=== PATIENT | female | born 1970 | race African-American/Black ===

== ENCOUNTER 2022-11-27 13:01 | Inpatient (IN) | payer OTHER ==
[~2022-11-27] VITALS: Ht 170.2 cm; Wt 99.6 kg
[2022-11-27 13:08] VITALS: BP_SYST 131
[2022-11-27] MEDS ORDERED: predniSONE 20 MG TABLET PO ONE (13:30)
[2022-11-27] MEDS ORDERED: IPRATROPIUM/ALBUTEROL SULFATE 3 ML AMPUL.NEB (DUONEB) INH ONE ×3 (13:30)
[2022-11-27] MEDS ORDERED: cefTRIAXone 1 GM in D5W 50 ML IV ONE (13:45)
[2022-11-27] MEDS ORDERED: AZITHROMYCIN 500 MG in NS 250 ML IV ONE (13:45)
[2022-11-27 14:02] LABS: HEMATOCRIT 35.6 % (36-48); MEAN CORPUSCULAR HEMOGLOBIN 25 pg (27-31); MEAN CORPUSCULAR HGB CONC 34 % (32-36); MEAN CORPUSCULAR VOLUME 74 fL (79.0-98.0); PLATELET COUNT (AUTO) 183 K/uL (130-430); RED BLOOD CELL COUNT(AUTO) 4.83 MIL/uL (4.2-6.2); RED CELL DISTRIBUTION WIDTH 16.7 % (9.0-15.0); WHITE BLOOD COUNT (AUTO) 6.2 K/uL (4.8-10.8)
[2022-11-27 14:03] LABS: BASOPHILS % (AUTO) 0.3 % (0.0-2.0); EOSINOPHILS % (AUTO) 0.2 % (0.0-4.0); LYMPHOCYTES # (AUTO) 0.6 K/uL (1.0-5.5); LYMPHOCYTES % (AUTO) 9.5 % (20.5-51.5); MONOCYTES # (AUTO) 0.4 K/uL (0.0-1.0); MONOCYTES % (AUTO) 6.2 % (1.7-9.3); NEUTROPHILS # (AUTO) 5.2 K/uL (1.8-7.7); NEUTROPHILS % (AUTO) 83.8 % (40.0-70.0)
[2022-11-27 14:06] LABS: ANION GAP 9 (5-15); CALCIUM 9.4 mg/dL (8.4-11.0); CHLORIDE 100 mmol/L (98-107); CREATININE 0.65 mg/dL (0.55-1.30); GLUCOSE 100 mg/dL (70-99); UREA NITROGEN, BLOOD 11 mg/dL (8-21)
[2022-11-27 14:13] LABS: ALANINE AMINOTRANSFERASE 14 U/L (12-78); ASPARTATE AMINOTRANSFERASE 13 U/L (10-37); TOTAL BILIRUBIN 0.4 mg/dL (0.0-1.0)
[2022-11-27 14:17] LABS: GFR AFRICAN AMERICAN 123 mL/min (>90)
[2022-11-27] MEDS ORDERED: cefTRIAXone 1 GM VIAL ONE (15:09)
[2022-11-27] MEDS ORDERED: AZITHROMYCIN 500 MG/VIAL (ZITHROMAX) IV ONE (15:10)
[2022-11-27] MEDS ORDERED: hydrALAZINE HCL 20 MG/ML VIAL IVP ONE (15:30)
[2022-11-27] MEDS ORDERED: NITROGLYCERIN 1 INCH (GM) OINT. TP ONE (15:30)
[2022-11-27] MEDS ORDERED: MORPHINE 4 MG INJ. 4 MG/ML VIAL IVP ONE (15:30)
[2022-11-27] MEDS ORDERED: ASPIRIN 325 MG TABLET PO ONE (15:30)
[2022-11-27 20:37] VITALS: BP_SYST 142
[2022-11-28] MEDS ORDERED: hydrALAZINE HCL 20 MG/ML VIAL IVP PRN (01:45)
[2022-11-28] MEDS ORDERED: NITROGLYCERIN 0.4 MG TAB.SUBL SL PRN (01:45)
[2022-11-28] MEDS: LISINOPRIL 10 MG TABLET (PRINIVIL) PO SCH (09:01)
[2022-11-28 09:02] VITALS: BP_SYST 155
[2022-11-28] MEDS: IPRATROPIUM/ALBUTEROL SULFATE 3 ML AMPUL.NEB (DUONEB) INH SCH ×4 (11:53→23:22)
[2022-11-28 12:30] VITALS: BP_SYST 151
[2022-11-28] MEDS: cefTRIAXone 1 GM in D5W 50 ML IV SCH (15:13)
[2022-11-28] MEDS: AZITHROMYCIN 500 MG in NS 250 ML IV SCH (15:14)
[2022-11-28] MEDS ORDERED: BUDESONIDE 0.5 MG/2 ML AMPUL.NEB INH ONE (15:15)
[2022-11-28] MEDS ORDERED: methylPREDNISolone SOD SUCC/PF 62.5 MG/ML VIAL IVP ONE (15:15)
[2022-11-28 16:30] VITALS: BP_SYST 138
[2022-11-28 16:42] LABS: C-REACTIVE PROTEIN QUANT 3.1 mg/dL (0-0.5)
[2022-11-28 19:00] VITALS: BP_SYST 152
[2022-11-28 20:00] VITALS: BP_SYST 152
[2022-11-28] MEDS: BUDESONIDE 0.5 MG/2 ML AMPUL.NEB INH SCH (20:16)
[2022-11-28] MEDS: methylPREDNISolone SOD SUCC/PF 62.5 MG/ML VIAL IVP SCH (20:17)
[2022-11-29] VITALS: BP_SYST 150
[2022-11-29 02:43] LABS: BASOPHILS % (AUTO) 0.3 % (0.0-2.0); HEMATOCRIT 34.2 % (36-48); HEMOGLOBIN 11.3 g/dL (12.0-16.0); LYMPHOCYTES # (AUTO) 0.2 K/uL (1.0-5.5); LYMPHOCYTES % (AUTO) 2.8 % (20.5-51.5); MEAN CORPUSCULAR HEMOGLOBIN 24 pg (27-31); MEAN CORPUSCULAR HGB CONC 33 % (32-36); MEAN CORPUSCULAR VOLUME 74 fL (79.0-98.0); MONOCYTES % (AUTO) 0.5 % (1.7-9.3); NEUTROPHILS # (AUTO) 7.7 K/uL (1.8-7.7); NEUTROPHILS % (AUTO) 96.4 % (40.0-70.0); PLATELET COUNT (AUTO) 232 K/uL (130-430); RED BLOOD CELL COUNT(AUTO) 4.64 MIL/uL (4.2-6.2); RED CELL DISTRIBUTION WIDTH 16.8 % (9.0-15.0); WHITE BLOOD COUNT (AUTO) 7.9 K/uL (4.8-10.8)
[2022-11-29 03:08] LABS: CALCIUM 8.9 mg/dL (8.4-11.0); CREATININE 0.79 mg/dL (0.55-1.30)
[2022-11-29] MEDS: IPRATROPIUM/ALBUTEROL SULFATE 3 ML AMPUL.NEB (DUONEB) INH SCH ×5 (03:15→19:55)
[2022-11-29 03:28] LABS: ALBUMIN 2.7 g/dL (3.4-4.8); THYROID STIMULATING HORMONE 0.52 uIu/mL (0.34-4.82); TOTAL BILIRUBIN 0.2 mg/dL (0.0-1.0)
[2022-11-29] MEDS: BUDESONIDE 0.5 MG/2 ML AMPUL.NEB INH SCH ×2 (08:14→19:55)
[2022-11-29 08:20] VITALS: BP_SYST 159
[2022-11-29] MEDS: LISINOPRIL 10 MG TABLET (PRINIVIL) PO SCH (09:07)
[2022-11-29] MEDS: methylPREDNISolone SOD SUCC/PF 62.5 MG/ML VIAL IVP SCH ×2 (09:08→21:21)
[2022-11-29] MEDS ORDERED: NIFEdipine 30 MG TAB.ER.24 PO ONE (12:15)
[2022-11-29 12:30] VITALS: BP_SYST 164
[2022-11-29] MEDS: cefTRIAXone 1 GM in D5W 50 ML IV SCH (15:15)
[2022-11-29 16:15] VITALS: BP_SYST 165
[2022-11-29] MEDS: AZITHROMYCIN 500 MG in NS 250 ML IV SCH (17:09)
[2022-11-29 19:00] VITALS: BP_SYST 138
[2022-11-29 20:00] VITALS: BP_SYST 138
[2022-11-30] VITALS: BP_SYST 136
[2022-11-30] MEDS: IPRATROPIUM/ALBUTEROL SULFATE 3 ML AMPUL.NEB (DUONEB) INH SCH ×6 (03:46→22:54)
[2022-11-30] MEDS: BUDESONIDE 0.5 MG/2 ML AMPUL.NEB INH SCH ×2 (07:34→20:12)
[2022-11-30] MEDS: LISINOPRIL 10 MG TABLET (PRINIVIL) PO SCH (09:01)
[2022-11-30] MEDS: methylPREDNISolone SOD SUCC/PF 62.5 MG/ML VIAL IVP SCH ×2 (09:02→22:04)
[2022-11-30] MEDS: NIFEdipine 30 MG TAB.ER.24 PO SCH (09:02)
[2022-11-30] MEDS ORDERED: amLODIPine BESYLATE 5 MG TABLET PO ONE (10:30)
[2022-11-30 11:31] VITALS: BP_SYST 127
[2022-11-30] MEDS ORDERED: LISI10TA29 PO (14:14)
[2022-11-30] MEDS ORDERED: NIFEdipine PO (14:14)
[2022-11-30] MEDS ORDERED: IPRA4AER INH (14:14)
[2022-11-30] MEDS ORDERED: CEFA250C45 PO (14:14)
[2022-11-30] MEDS ORDERED: PRED5TAB PO (14:16)
[2022-11-30] MEDS: cefTRIAXone 1 GM in D5W 50 ML IV SCH (15:33)
[2022-11-30] MEDS: AZITHROMYCIN 500 MG in NS 250 ML IV SCH (16:54)
[2022-11-30 17:34] VITALS: BP_SYST 135
[2022-11-30 20:00] VITALS: BP_SYST 140
[2022-12-01] VITALS: BP_SYST 146
[2022-12-01] MEDS: IPRATROPIUM/ALBUTEROL SULFATE 3 ML AMPUL.NEB (DUONEB) INH SCH ×3 (03:00→11:00)
[2022-12-01] MEDS: BUDESONIDE 0.5 MG/2 ML AMPUL.NEB INH SCH (07:23)
[2022-12-01 08:37] VITALS: BP_SYST 143
[2022-12-01] MEDS: methylPREDNISolone SOD SUCC/PF 62.5 MG/ML VIAL IVP SCH (08:41)
[2022-12-01] MEDS: NIFEdipine 30 MG TAB.ER.24 PO SCH (08:42)
[2022-12-01] MEDS: LISINOPRIL 10 MG TABLET (PRINIVIL) PO SCH (08:44)
[2022-12-01] MEDS ORDERED: amLODIPine BESYLATE 5 MG TABLET PO SCH (09:00)
[2022-12-01 10:49] VITALS: BP_SYST 143
== END 2022-12-01 12:00 | disposition home or self-care (01) | DRG 193 ==
LOC: SED 13:01 → STU 16:40
PROVIDERS: ADMIT Internal Medicine; ATTEND Internal Medicine
DX: J15.9 Unspecified bacterial pneumonia (principal); J96.01 Acute respiratory failure with hypoxia; J45.901 Unspecified asthma with (acute) exacerbation; I10 Essential (primary) hypertension; E66.9 Obesity, unspecified; J20.9 Acute bronchitis, unspecified; Z20.822 Contact with and (suspected) exposure to COVID-19; Z79.899 Other long term (current) drug therapy; Z86.16 Personal history of COVID-19; Z68.34 Body mass index [BMI] 34.0-34.9, adult
CPT/HCPCS: 36415; 70490; 71045; 71250-TC; 76376; 80053; 80061; 83880; 84443; 84484; 85025; 85651-TC; 86140; 87040; 93005; 93306; 94640; 94760; 96365; 96367; 96375; 99285; G0378; J0360; J0456; J0696; J2270; J2930; J7050; J7060; J7512; J7626; U0003